=== PATIENT | male | born 1955 | race Native Hawaiian/Other Pacific Islander ===

== ENCOUNTER 2016-11-22 20:20 | Emergency (ER) | payer SELFPAY ==
[~2016-11-22] VITALS: Ht 172.7 cm; Wt 75.0 kg
[2016-11-22 20:36] VITALS: BP 109/62; PULSE 95; RESP 18; TEMP 97.6; O2SAT 97
[2016-11-22] MEDS ORDERED: ALPR.25 PO (20:58)
[2016-11-22] MEDS ORDERED: CYAN500S SL (20:59)
[2016-11-22] MEDS ORDERED: PLAV75TA29 PO (20:59)
[2016-11-22] MEDS ORDERED: CARV6.25 PO (20:59)
[2016-11-22] MEDS ORDERED: APIX5TAB PO (20:59)
[2016-11-22] MEDS ORDERED: POTA1TAB4 PO (21:02)
[2016-11-22] MEDS ORDERED: SPIR25 PO (21:02)
[2016-11-22] MEDS ORDERED: ZANT150T2 PO (21:02)
[2016-11-22] MEDS ORDERED: FURO1TAB60 PO (21:02)
--- NOTE | 2016-11-22 21:11 | PD ---
HPI Chief Complaint: Skin Problem Time Seen by Provider: 21:02 Travel History International Travel<30 days: No Contact w/Intl Traveler<30days: No Traveled to known affect area: No History of Present Illness HPI 61-year-old male with history of CAD, A. fib, CHF with an EF of 24%, on Eliquis , here for evaluation of increased weight gain and believing that he is not responding to Lasix as he should. He is from [place], and his cattle manager is there. His son techs at his cattle manager today and recommended that he present to an emergency department for evaluation. Patient denies chest pain. No dyspnea. He does state his legs feel more swollen than they usually are. He had a right sided thoracentesis one week ago. [facility] Social History Tobacco Use: Yes Allergies-Medications (Allergen,Severity, Reaction): Coded Allergies: No Known Allergies (Unverified , 11/22/16) Reported Meds & Prescriptions Reported Meds & Active Scripts Active Reported Aldactone (Spironolactone) 25 Mg Tab 25 Mg PO BIDPC Zantac (Ranitidine HCl) 150 Mg Tab 150 Mg PO BID K-Tab (Potassium Chloride) 20 Meq Tab 20 Meq PO DAILY Lasix (Furosemide) 40 Mg Tab 40 Mg PO DAILY B-12 (Cyanocobalamin) 500 Mcg Subl 250 Mcg SL DAILY Plavix (Clopidogrel Bisulfate) 75 Mg Tab 75 Mg PO DAILY Coreg (Carvedilol) 6.25 Mg Tab 6.25 Mg PO BID Eliquis (Apixaban) 5 Mg Tab 5 Mg PO BID Xanax (Alprazolam) 0.25 Mg Tab 0.25 Mg PO HS PRN Review of Systems Except as stated in HPI: all other systems reviewed are Neg Physical Exam Narrative GENERAL: Well-developed, well-nourished, no apparent distress. SKIN: Focused skin assessment warm/dry. HEAD: Atraumatic. Normocephalic. EYES: Pupils equal and round. No scleral icterus. No injection or drainage. ENT: Mucous membranes pink and moist. NECK: Trachea midline. No JVD. CARDIOVASCULAR: Regular rate and rhythm. RESPIRATORY: No accessory muscle use. Clear to auscultation. Breath sounds equal bilaterally. GASTROINTESTINAL: Abdomen soft, non-tender, nondistended. Hepatic and splenic margins not palpable. MUSCULOSKELETAL: No obvious deformities. No clubbing. No cyanosis. Mild bilateral lower extremity edema. NEUROLOGICAL: Awake and alert. No obvious cranial nerve deficits. Motor grossly within normal limits. Normal speech. PSYCHIATRIC: Appropriate mood and affect; insight and judgment normal. Data Data Last Documented VS Vital Signs Date Time Temp Pulse Resp B/P (MAP) Pulse Ox O2 Delivery O2 Flow Rate FiO2 11/23/16 00:16 88 18 90/70 (77) 96 11/22/16 22:17 Room Air 11/22/16 20:36 97.6 Orders Orders Complete Blood Count With Diff (11/22/16 21:08) Comprehensive Metabolic Panel (11/22/16 21:08) B-Type Natriuretic Peptide (11/22/16 21:08) Act Partial Throm Time (Ptt) (11/22/16 21:08) Prothrombin Time / Inr (Pt) (11/22/16 21:08) Iv Access Insert/Monitor (11/22/16 21:08) Ecg Monitoring (11/22/16 21:08) Oximetry (11/22/16 21:08) Oxygen Administration (11/22/16 21:08) Chest, Single Ap (11/22/16 21:08) Sodium Chloride 0.9% Flush (Ns Flush) (11/22/16 21:15) Furosemide Inj (Lasix Inj) (11/22/16 22:45) Ondansetron Inj (Zofran Inj) (11/22/16 22:45) Lorazepam Inj (Ativan Inj) (11/22/16 23:30) Labs Laboratory Tests Test 11/22/16 21:33 White Blood Count 5.9 TH/MM3 Red Blood Count 3.55 MIL/MM3 Hemoglobin 10.1 GM/DL Hematocrit 31.8 % Mean Corpuscular Volume 89.5 FL Mean Corpuscular Hemoglobin 28.3 PG Mean Corpuscular Hemoglobin Concent 31.6 % Red Cell Distribution Width 16.8 % Platelet Count 212 TH/MM3 Mean Platelet Volume 8.6 FL Neutrophils (%) (Auto) 62.3 % Lymphocytes (%) (Auto) 18.8 % Monocytes (%) (Auto) 15.1 % Eosinophils (%) (Auto) 2.8 % Basophils (%) (Auto) 1.0 % Neutrophils # (Auto) 3.6 TH/MM3 Lymphocytes # (Auto) 1.1 TH/MM3 Monocytes # (Auto) 0.9 TH/MM3 Eosinophils # (Auto) 0.2 TH/MM3 Basophils # (Auto) 0.1 TH/MM3 CBC Comment DIFF FINAL Differential Comment Prothrombin Time 15.9 SEC Prothromb Time International Ratio 1.4 RATIO Activated Partial Thromboplast Time 32.2 SEC Blood Urea Nitrogen 26 MG/DL Creatinine 1.40 MG/DL Random Glucose 137 MG/DL Total Protein 7.1 GM/DL Albumin 3.1 GM/DL Calcium Level 8.7 MG/DL Alkaline Phosphatase 195 U/L Aspartate Amino Transf (AST/SGOT) 68 U/L Alanine Aminotransferase (ALT/SGPT) 109 U/L Total Bilirubin 3.8 MG/DL Sodium Level 133 MEQ/L Potassium Level 4.1 MEQ/L Chloride Level 100 MEQ/L Carbon Dioxide Level 24.6 MEQ/L Anion Gap 8 MEQ/L Estimat Glomerular Filtration Rate 52 ML/MIN B-Type Natriuretic Peptide 1039 PG/ML MDM Medical Decision Making Medical Screen Exam Complete: Yes Emergency Medical Condition: Yes Differential Diagnosis CHF, pulmonary edema/fluid overload, metabolic abnormality Narrative Course Initial vital signs show heart rate 95, blood pressure 109/62, pulse ox 97% on room air, oral temp of 97.6F. CBC shows WBC 5.9, hemoglobin 10.1, hematocrit 31.8, platelets 212. CMP is remarkable for BUN 26, creatinine 1.4, GFR 52, random glucose 137, T bili 3.8, AST 68, ALT 109, alkaline phosphatase 195, BNP 1039. Chest x-ray: Small right pleural effusion with associated volume loss and or airspace consolidation. Mildly enlarged cardiac silhouette. The patient and the patient's son were made aware of all findings. They both seem to have a thorough understanding of the patient's medical history. Patient 's son reports that his T bili was elevated during his hospitalization last week in [place]. His LFTs were also even more elevated according to the son , and improved after his thoracentesis was performed. This is likely secondary to hepatic congestion from CHF. Patient denies shortness of breath or chest pain. He states he is going to [place] tomorrow for further medical care as soon as he arrives regarding his CHF, and prefers to be discharged so he can follow-up with this appointment. At this point my plan is to give him a dose of IV Lasix 40 mg and reassess. The patient is requesting something to make him relax and possibly sleep. He states he has not had any sleep in the last several days. I will give him a small dose of Ativan. On reassessment the patient is comfortable. He is not having any chest pain. There is no dyspnea. Lung sounds are clear and equal bilaterally. Again the patient prefers to be discharged home so he can flex candidate tomorrow where he has an appointment with a physician who knows him very well. His son is also asking to be discharged. I did offer to admit the patient for further treatment. They were informed on when to return to the emergency department. They verbalized understanding and agreement with plan. Diagnosis Primary Impression: CHF (congestive heart failure) Qualified Codes: I50.9 - Heart failure, unspecified Additional Impressions: Pleural effusion Transaminitis Referrals: Primary Care Physician 1 day Additional Instructions: Follow-up with your doctor tomorrow as scheduled. Return to the emergency department for worsening symptoms or any other concerns as discussed. Disposition: DISCHARGE HOME Condition: Stable Kervin Grubbs MD Nov 22, 2016 21:11
[2016-11-22 21:13] VITALS: O2SAT 97
[2016-11-22] MEDS ORDERED: SODIUM CHLORIDE 0.9% FLUSH 10 ML FLUSH IVF PRN (21:15)
--- NOTE | 2016-11-22 21:38 | RADRPT ---
EXAM DATE/TIME: 11/22/2016 21:10 [facility] COMPARISON: No previous studies available for comparison. INDICATIONS : Shortness of breath. MEDICAL HISTORY : Hypertension. Congestive heart failure. Coronary artery disease. SURGICAL HISTORY : CABG. Coronary artery stent. Pacemaker. Cardiac catheterization. ENCOUNTER: Initial ACUITY: 1 day PAIN SCORE: 0/10 LOCATION: Bilateral chest FINDINGS: Portable AP view of the chest demonstrates mildly enlarged cardiac silhouette in this patient post me sandro sternotomy. Left chest wall cardiac pacing device size AICD is present. There is a small right b asilar pleural plaque opacity. No left lung abnormality is seen. No pneumothorax is present. Bones an d soft tissues demonstrate no acute finding. CONCLUSION: 1. Small right pleural effusion with associated volume loss and/or airspace consolidation. 2. Mildly enlarged cardiac silhouette. Michael Moran MD on November 22, 2016 at 21:35 Board Certified Radiologist. This report was verified electronically.
[2016-11-22 21:41] LABS: AUTOMATED NEUTROPHIL # 3.6 TH/MM3 (1.8-7.7); BASOPHIL # 0.1 TH/MM3 (0-0.2); EOSINOPHIL # 0.2 TH/MM3 (0-0.4); EOSINOPHIL % 2.8 % (0.0-4.0); HEMATOCRIT 31.8 % (39.0-51.0); HEMO FLAGS DIFF FINAL; LYMPH % 18.8 % (9.0-44.0); LYMPHOCYTE # 1.1 TH/MM3 (1.0-4.8); MEAN CELL VOLUME 89.5 FL (80.0-100.0); MEAN CORPUSCULAR HEMOGLOBIN 28.3 PG (27.0-34.0); MEAN CORPUSCULAR HGB CONC 31.6 % (32.0-36.0); MONO % 15.1 % (0.0-8.0); NEUT % 62.3 % (16.0-70.0); PLATELET COUNT 212 TH/MM3 (150-450); RED BLOOD COUNT 3.55 MIL/MM3 (4.50-5.90); RED CELL DISTRIBUTION WIDTH 16.8 % (11.6-17.2); WHITE BLOOD COUNT 5.9 TH/MM3 (4.0-11.0)
[2016-11-22 21:49] LABS: CHLORIDE 100 MEQ/L (98-107); POTASSIUM 4.1 MEQ/L (3.5-5.1); SODIUM (NA) 133 MEQ/L (136-145)
[2016-11-22 21:52] LABS: ANION GAP 8 MEQ/L (5-15); BICARBONATE 24.6 MEQ/L (21.0-32.0)
[2016-11-22 21:53] LABS: BLOOD UREA NITROGEN 26 MG/DL (7-18)
[2016-11-22 21:55] LABS: ALT (GPT) 109 U/L (12-78)
[2016-11-22 21:56] LABS: AST (GOT) 68 U/L (15-37); GLOMERULAR FILTRATION RATE 52 ML/MIN (>89)
[2016-11-22 21:57] LABS: TOTAL BILIRUBIN ADULT 3.8 MG/DL (0.2-1.0)
[2016-11-22 21:58] LABS: ALKALINE PHOSPHATASE 195 U/L (45-117)
[2016-11-22 22:17] VITALS: BP 86/69; PULSE 92; RESP 20; O2SAT 98
[2016-11-22 22:31] LABS: APTT (PATIENT) 32.2 SEC (24.3-30.1); INTERNATIONAL NORMALIZED RATIO 1.4 RATIO; PROTHROMBIN TIME - PATIENT 15.9 SEC (9.8-11.6)
[2016-11-22] MEDS ORDERED: ONDANSETRON HCL 4 MG/2 ML VIAL IV PUSH ONE (22:45)
[2016-11-22] MEDS ORDERED: FUROSEMIDE 40 MG/4 ML VIAL IV PUSH ONE (22:45)
[2016-11-22] MEDS ORDERED: LORazepam 2 MG/ML VIAL IV PUSH ONE (23:30)
[2016-11-22 23:34] VITALS: BP 104/74; PULSE 90
[2016-11-23 00:16] VITALS: BP 90/70
== END 2016-11-23 00:29 | disposition home or self-care (01) ==
LOC: PHED 20:20
DX: I11.0 Hypertensive heart disease with heart failure (principal); I50.9 Heart failure, unspecified; R74.0 Nonspecific elevation of levels of transaminase and lactic acid dehydrogenase [LDH]; I48.91 Unspecified atrial fibrillation; I25.10 Atherosclerotic heart disease of native coronary artery without angina pectoris; Z72.0 Tobacco use; Z79.01 Long term (current) use of anticoagulants; Z79.899 Other long term (current) drug therapy
CPT/HCPCS: 71010; 80053; 83880; 85025; 85610; 85730; 96374; 96375; 99284; J1940; J2060; J2405